=== PATIENT | male | born 1985 | race Caucasian/White ===

== ENCOUNTER 2016-11-15 03:47 | Emergency (ER) | payer BC, OTHER ==
[2016-11-15] MEDS ORDERED: Zofran 4 MG/2 ML VIAL IV ONE (04:02)
[2016-11-15] MEDS ORDERED: Sodium Chloride 0.9% 1000 ML 1,000 ML IV STA (04:02)
[2016-11-15] MEDS ORDERED: Sodium Chloride 0.9% 1000 ML 1,000 ML ONE (04:07)
[2016-11-15] MEDS ORDERED: Zofran 4 MG/2 ML VIAL ONE (04:07)
--- NOTE | 2016-11-15 04:08 | ERPHSYRPT ---
- History of Present Illness Time Seen by Provider: 11/15/16 04:06 Historian: patient Exam Limitations: no limitations Patient Subjective Stated Complaint: pt has been having pain in his left flank area off and on for 3 days and tonight he is sweating and having more pain co nausea no fever history of similar in the past without intervention Triage Nursing Assessment: pt is awake and alert and able to answer questions holding his left side Physician History: pt has been having pain in his left flank area off and on for 3 days and tonight he is sweating and having more pain co nausea no fever history of similar in the past without intervention Timing/Duration: today Activities at Onset: none Quality: cramping Abdominal Pain Onset Location: flank (left) Pain Radiation: groin Severity of Pain-Max: moderate Severity of Pain-Current: moderate Allergies/Adverse Reactions: No Known Drug Allergies Allergy (Unverified 11/15/16 04:01) Home Medications: No Reportable Medications [No Reported Medications] 11/15/16 [History] Hx Tetanus, Diphtheria Vaccination/Date Given: No Hx Influenza Vaccination/Date Given: No Hx Pneumococcal Vaccination/Date Given: No Immunizations Up to Date: Yes - Review of Systems Constitutional: No Fever, No Chills Eyes: No Symptoms Ears, Nose, & Throat: No Symptoms Respiratory: No Cough, No Dyspnea Cardiac: No Chest Pain, No Edema, No Syncope Abdominal/Gastrointestinal: Abdominal Pain, No Nausea, No Vomiting, No Diarrhea Genitourinary Symptoms: No Dysuria, No Frequency, No Hematuria, No Hesitancy Musculoskeletal: No Back Pain, No Neck Pain Skin: No Rash Neurological: No Dizziness, No Focal Weakness, No Sensory Changes Psychological: No Symptoms Endocrine: No Symptoms All Other Systems: Reviewed and Negative - Past Medical History Pertinent Past Medical History: No - Past Surgical History Past Surgical History: No - Social History Smoking Status: Never smoker Exposure to second hand smoke: No Drug Use: none Patient Lives Alone: No - Nursing Vital Signs Nursing Vital Signs: Initial Vital Signs Temperature 98.4 F Temperature Source Oral Pulse Rate 66 Respiratory Rate 16 Blood Pressure [] 150/108 Pain Intensity 7 - Physical Exam General Appearance: no apparent distress, alert Eye Exam: PERRL/EOMI, eyes nml inspection Ears, Nose, Throat Exam: normal ENT inspection, pharynx normal, moist mucous membranes Neck Exam: normal inspection, non-tender, supple, full range of motion Respiratory Exam: normal breath sounds, lungs clear, No respiratory distress Cardiovascular Exam: regular rate/rhythm, normal heart sounds Gastrointestinal/Abdomen Exam: soft, No tenderness, No mass Back Exam: normal inspection, normal range of motion, No CVA tenderness, No vertebral tenderness Extremity Exam: normal inspection, normal range of motion, pelvis stable Neurologic Exam: alert, oriented x 3, cooperative, normal mood/affect, nml cerebellar function, sensation nml, No motor deficits Skin Exam: normal color, warm, dry SpO2: 100 Oxygen Delivery: Room Air - Course Nursing assessment & vital signs reviewed: Yes - CT Exams Abdomen/Pelvis CT Interpretation: Tele-radiologist Report (left proximal ureteric stone with left hydronephrosis) Ordered Tests: Active Orders 24 hr Category Date Time Status IV Insertion STAT Care 11/15/16 04:20 Active ABDOMEN AND PELVIS W/0 CONTRAS [CT] Stat Exams 11/15/16 04:02 Taken CBC W DIFF Stat Lab 11/15/16 04:13 Completed CMP Stat Lab 11/15/16 04:13 Completed UA Stat Lab 11/15/16 04:03 Ordered Medication Summary Generic Name Dose Route Start Last Admin Trade Name Freq PRN Reason Stop Dose Admin Ceftriaxone Sodium/Dextrose 1 g in 50 mls @ 100 mls/hr 11/15/16 04:42 Rocephin 1 Gm-D5w 50 Ml Bag IV 11/15/16 05:11 STAT STA Discontinued Medications Generic Name Dose Route Start Last Admin Trade Name Freq PRN Reason Stop Dose Admin Sodium Chloride 1,000 mls @ 999 mls/hr 11/15/16 04:02 11/15/16 04:13 Sodium Chloride 0.9% 1000 Ml IV 11/15/16 05:02 999 mls/hr .Q1H1M STA Administration Sodium Chloride Confirm 11/15/16 04:07 Sodium Chloride 0.9% 1000 Ml Administered 11/15/16 04:08 Dose 1,000 mls @ ud .ROUTE .STK-MED ONE Morphine Sulfate 4 mg 11/15/16 04:33 11/15/16 04:48 Morphine Sulfate 4 Mg Inj IV 11/15/16 04:34 4 mg STAT ONE Administration Morphine Sulfate Confirm 11/15/16 04:47 Morphine Sulfate 4 Mg Inj Administered 11/15/16 04:48 Dose 4 mg .ROUTE .STK-MED ONE Ondansetron HCl 4 mg 11/15/16 04:02 11/15/16 04:12 Zofran 4 Mg/2 Ml Vial IV 11/15/16 04:03 4 mg STAT ONE Administration Ondansetron HCl Confirm 11/15/16 04:07 Zofran 4 Mg/2 Ml Vial Administered 11/15/16 04:08 Dose 4 mg .ROUTE .STK-MED ONE Orphenadrine Citrate 60 mg 11/15/16 04:56 Norflex 60 Mg/2 Ml IM 11/15/16 04:57 STAT ONE Lab/Rad Data: Laboratory Result Diagrams 11/15/16 04:13 11/15/16 04:13 Laboratory Results 11/15/16 11/15/16 Range/Units 04:13 04:13 WBC 11.5 H (4.0-10.5) K/mm3 RBC 5.88 H (4.1-5.6) M/mm3 Hgb 15.7 (12.5-18.0) gm/dl Hct 44.9 (42-50) % MCV 76.4 L (78-100) fl MCH 26.7 (26-32) pg MCHC 35.0 (32-36) g/dl RDW 15.0 H (11.5-14.0) % Plt Count 319 (150-450) K/mm3 MPV 10.0 H (6-9.5) fl Gran % 71.6 H (36.0-66.0) % Lymphocytes % 18.7 L (24.0-44.0) % Monocytes % 8.4 (0.0-12.0) % Eosinophils % 1.0 (0.00-5.0) % Basophils % 0.3 (0.0-0.4) % Basophils # 0.04 (0-0.4) Sodium 142 (136-145) mEq/L Potassium 3.6 (3.5-5.1) mEq/L Chloride 104 (98-107) mEq/L Carbon Dioxide 25.1 (21-32) mEq/L Anion Gap 16.3 H (5-15) MEQ/L BUN 11 (9-20) mg/dL Creatinine 1.03 (0.55-1.30) mg/dl Estimated GFR > 60 ML/MIN Glucose 137 H (70-110) MG/DL Calcium 9.6 (8.5-10.1) mg/dL Total Bilirubin 0.30 (0.2-1.0) mg/dL AST 22 (15-37) U/L ALT 26 (12-78) U/L Alkaline Phosphatase 86 (46-116) U/L Serum Total Protein 8.4 H (6.4-8.2) gm/dL Albumin 4.0 (3.4-5.0) g/dL - Progress Progress: unchanged Counseled pt/family regarding: lab results, diagnosis, need for follow-up, rad results - Departure Time of Disposition: 05:02 Departure Disposition: Transfer ([facility]) Clinical Impression: Left ureteral calculus Condition: Stable Critical Care Time: Yes Critical Care Time(excluding separately billable procedures): 30-74 minutes Referrals: ELLIOTT SIMMONS [Primary Care Provider] - Instructions: Kidney Stones
[2016-11-15 04:15] LABS: BASOPHIL % 0.3 % (0.0-0.4); Granulocytes % 71.6 % (36.0-66.0); Lymphocytes % 18.7 % (24.0-44.0); Mean Cell Volume 76.4 fl (78-100); Mean Corpuscular Hemoglobin 26.7 pg (26-32); Monocytes % 8.4 % (0.0-12.0); Platelet Count 319 K/mm3 (150-450); Red Blood Count 5.88 M/mm3 (4.1-5.6); White Blood Count 11.5 K/mm3 (4.0-10.5)
[2016-11-15] MEDS ORDERED: MORPHINE SULFATE 4 MG INJ IV ONE (04:33)
[2016-11-15 04:42] LABS: ALKALINE PHOSPHATASE 86 U/L (46-116); ANION GAP 16.3 MEQ/L (5-15); BLOOD UREA NITROGEN 11 mg/dL (9-20); CHLORIDE 104 mEq/L (98-107); Carbon Dioxide 25.1 mEq/L (21-32); Glucose 137 MG/DL (70-110); Potassium 3.6 mEq/L (3.5-5.1); SGOT/AST 22 U/L (15-37); SGPT/ALT 26 U/L (12-78); SODIUM 142 mEq/L (136-145); Total Protein 8.4 gm/dL (6.4-8.2)
[2016-11-15] MEDS ORDERED: ROCEPHIN 1 Gm-D5w 50 ml Bag** 1 G/50 ML IVPB IV STA (04:42)
[2016-11-15] MEDS ORDERED: MORPHINE SULFATE 4 MG INJ ONE (04:47)
[2016-11-15] MEDS ORDERED: Norflex 60 MG/2 ML IM ONE (04:56)
[2016-11-15] MEDS ORDERED: Norflex 60 MG/2 ML ONE (05:00)
[2016-11-15] MEDS ORDERED: SUBLIMAZE 100 MCG/2 ML IV ONE (05:03)
[2016-11-15] MEDS ORDERED: SUBLIMAZE 100 MCG/2 ML ONE (05:07)
[2016-11-15 05:14] VITALS: PULSE 80
[2016-11-15] MEDS ORDERED: ROCEPHIN 1 Gm-D5w 50 ml Bag** 1 G/50 ML IVPB IV ONE (05:33)
[2016-11-15 05:40] VITALS: BP 138/90; O2SAT 99
--- NOTE | 2016-11-15 06:55 | XRAY ---
Indication: Left flank pain, nausea, and diaphoresis. Multiple contiguous axial images obtained through the abdomen and pelvis without contrast as ordered. Comparison: None Lung bases are clear. Heart is not enlarged. There is a 5 mm proximal left ureter calculus, approximately L3 level. Minimal hydronephrosis but no perinephric fluid. Additional nonobstructing bilateral renal microcalculi. 8 mm right mid renal cortical cyst. Noncontrasted stomach and bowel loops appear nonobstructed. Normal appendix. No free fluid/air. Remaining liver, gallbladder, pancreas, spleen, adrenal glands, kidneys, ureters, bladder, and aorta appear unremarkable for noncontrast exam. Osseous structures intact. Impression: 5 mm proximal left ureter calculus producing partial obstruction as detailed. Additional bilateral renal microcalculi and incidental subcentimeter right renal cyst. Comment: Preliminary interpretation was made by [facility]. No discrepancy. CTDI 21.80
== END 2016-11-15 05:45 | disposition short-term general hospital (02) ==
LOC: ED 03:47
DX: N20.1 Calculus of ureter (principal); R11.10 Vomiting, unspecified; R10.9 Unspecified abdominal pain; R61 Generalized hyperhidrosis
CPT/HCPCS: 36000; 36415; 74176; 80053; 85025; 96360; 96365; 96372; 96374; 96375; 99285; J0696; J2270; J2360; J2405; J3010

== ENCOUNTER 2018-11-14 19:41 | Emergency (ER) | payer OTHER ==
[2018-11-14] MEDS ORDERED: BENADRYL 50 MG/ML IV ONE (19:54)
[2018-11-14] MEDS ORDERED: solu-MEDROL 125 MG IV ONE (19:54)
--- NOTE | 2018-11-14 19:54 | ERPHSYRPT ---
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 he presents because of mild facial swelling and hives. no breathing issues. pt has been stung before. no history of allergies. 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 Severity: mild Associated Symptoms: rash, No nausea, No vomiting, No abdominal pain, No shortness of breath, No chest pain Allergies/Adverse Reactions: No Known Drug Allergies Allergy (Verified 11/14/18 19:45) Hx Tetanus, Diphtheria Vaccination/Date Given: No Hx Influenza Vaccination/Date Given: No Hx Pneumococcal Vaccination/Date Given: No - Review of Systems Constitutional: No Symptoms Eyes: No Symptoms Ears, Nose, & Throat: No Symptoms, No Stridor Respiratory: No Symptoms, No Dyspnea, No Wheezing Cardiac: No Symptoms, No Chest Pain, No Palpitations Abdominal/Gastrointestinal: No Symptoms, No Abdominal Pain, No Nausea, No Vomiting Genitourinary Symptoms: No Symptoms Musculoskeletal: No Symptoms Skin: Other (skin localized redness and swelling at bee sting sites. no infection or cellulitis) Neurological: No Symptoms Psychological: No Symptoms Endocrine: No Symptoms Hematologic/Lymphatic: No Symptoms Immunological/Allergic: No Symptoms All Other Systems: Reviewed and Negative - Past Medical History Pertinent Past Medical History: No Neurological History: No Pertinent History ENT History: No Pertinent History Cardiac History: No Pertinent History Respiratory History: No Pertinent History Endocrine Medical History: No Pertinent History Musculoskeletal History: No Pertinent History GI Medical History: No Pertinent History History: No Pertinent History Psycho-Social History: No Pertinent History Male Reproductive Disorders: No Pertinent History - Past Surgical History Past Surgical History: No Neuro Surgical History: No Pertinent History Cardiac: No Pertinent History Respiratory: No Pertinent History Gastrointestinal: No Pertinent History Genitourinary: No Pertinent History Musculoskeletal: No Pertinent History Male Surgical History: No Pertinent History - Social History Smoking Status: Never smoker Exposure to second hand smoke: No Drug Use: none Patient Lives Alone: No - Nursing Vital Signs Nursing Vital Signs: Initial Vital Signs Temperature 98.3 F 11/14/18 19:46 Pulse Rate 140 H 11/14/18 19:46 Respiratory Rate 18 11/14/18 19:46 Blood Pressure 133/104 11/14/18 19:46 O2 Sat by Pulse Oximetry 95 11/14/18 19:46 Pain Scale Pain Intensity 0 - Physical Exam General Appearance: mild distress, alert, anxiety Eye Exam: PERRL/EOMI, eyes nml inspection Ears, Nose, Throat Exam: normal ENT inspection, moist mucous membranes Neck Exam: normal inspection, non-tender, supple, full range of motion Respiratory Exam: normal breath sounds, lungs clear, airway intact, No chest tenderness, No respiratory distress, No rhonchi, No wheezing, No stridor Cardiovascular Exam: tachycardia Gastrointestinal/Abdomen Exam: soft, normal bowel sounds, No tenderness Neurologic Exam: alert, oriented x 3, cooperative, wringer and setter II-XII nml as tested Skin Exam: diaphoresis (mild), other (mild localized skin redness and swelling at bee sting sites) Lymphatic Exam: No adenopathy SpO2 Interpretation: normal O2 Delivery: Room Air - Course Nursing assessment & vital signs reviewed: Yes Ordered Tests: Active Orders 24 hr Category Date Time Status IV Insertion STAT Care 11/14/18 19:54 Active Medication Summary Generic Name Dose Route Start Last Admin Trade Name Freq PRN Reason Stop Dose Admin Sodium Chloride 500 mls @ 500 mls/hr 11/14/18 20:19 11/14/18 20:20 Sodium Chloride 0.9% 500 Ml IV 11/14/18 21:18 500 mls/hr .Q1H ONE Administration Discontinued Medications Generic Name Dose Route Start Last Admin Trade Name Freq PRN Reason Stop Dose Admin Diphenhydramine HCl 50 mg 11/14/18 19:54 11/14/18 20:02 Benadryl 50 Mg/Ml IV 11/14/18 19:55 50 mg STAT ONE Administration Diphenhydramine HCl Confirm 11/14/18 20:01 Benadryl 50 Mg/Ml Administered 11/14/18 20:02 Dose 50 mg .ROUTE .STK-MED ONE Famotidine 40 mg 11/14/18 19:56 11/14/18 20:03 Pepcid 20 Mg Vial IV 11/14/18 19:57 40 mg STAT ONE Administration Famotidine Confirm 11/14/18 20:01 Pepcid 20 Mg Vial Administered 11/14/18 20:02 Dose 40 mg IV .STK-MED ONE Sodium Chloride Confirm 11/14/18 20:17 Sodium Chloride 0.9% 1000 Ml Administered 11/14/18 20:18 Dose 1,000 mls @ ud .ROUTE .STK-MED ONE Methylprednisolone Sodium Succinate 125 mg 11/14/18 19:54 11/14/18 20:03 Solu-Medrol 125 Mg IV 11/14/18 19:55 125 mg STAT ONE Administration Methylprednisolone Sodium Succinate Confirm 11/14/18 20:01 Solu-Medrol 125 Mg Administered 11/14/18 20:02 Dose 125 mg .ROUTE .STK-MED ONE - Progress Progress: improved Progress Note: 11/14/18 20:58 pt states he is feeling much better. he wants to go home Counseled pt/family regarding: diagnosis, need for follow-up - Departure Departure Disposition: Home Clinical Impression: Allergic reaction to bee sting Condition: Stable Critical Care Time: No Referrals: ELLIOTT SIMMONS [Primary Care Provider] - Additional Instructions: take over the counter benadryl 25 mg orally 3 times daily for 4 days. return to ED if symptoms worsen. follow up with primary doctor for further management. Prescriptions: Prednisone 10 mg [Deltasone 10 mg] 10 mg PO TID #12 tablet Ranitidine HCl [Zantac] 150 mg PO BID 5 Days #10 tablet
[2018-11-14] MEDS ORDERED: Pepcid 20 MG VIAL IV ONE ×2 (19:56→20:01)
[2018-11-14] MEDS ORDERED: solu-MEDROL 125 MG ONE (20:01)
[2018-11-14] MEDS ORDERED: BENADRYL 50 MG/ML ONE (20:01)
[2018-11-14 20:16] VITALS: O2SAT 97
[2018-11-14] MEDS ORDERED: Sodium Chloride 0.9% 1000 ML 1,000 ML ONE (20:17)
[2018-11-14] MEDS ORDERED: Sodium Chloride 0.9% 500 ML 500 ML IV ONE (20:19)
[2018-11-14 21:12] VITALS: BP 123/84; PULSE 107
== END 2018-11-14 21:18 | disposition home or self-care (01) ==
LOC: ED 19:41
DX: T63.441A Toxic effect of venom of bees, accidental (unintentional), initial encounter (principal)
CPT/HCPCS: 36000; 96360; 96374; 96375; 99284; J1200; J2930